=== PATIENT | female | born 1960 | race Caucasian/White ===

== ENCOUNTER 2017-06-16 12:32 | Emergency (ER) | payer OTHER ==
--- NOTE | 2017-06-16 13:47 | Emergency Department Report ---
Chief Complaint: Chest Pain Stated Complaint: CHEST PAIN Time Seen by Provider: 06/16/17 13:43 - HPI History of Present Illness: Patient with H/O HTN and DM presents to ED with c/o intermittent left sided CP that radiates into left shoulder and SOB x 4 days; also admits to nausea and generalized PANTOJA; denies vomiting, abdominal pain, cough, fevers, recent injuries , and H/O FL and CVA; admits she hasn't taken her DM meds in 3 months and BP meds in 1 week - ROS Review of Systems: Negative except for those stated in HPI - Exam Vital Signs: Vital Signs 06/16/17 12:54 Temperature 98.2 F Pulse Rate 82 Respiratory 16 Rate Blood Pressure 141/90 O2 Sat by Pulse 97 Oximetry Physical Exam: NAD RRR CTAB, mild TTP over left anterior chest wall Abdomen - soft, nondistended, nontender MSE screening note: Focused history and physical exam performed. Due to findings the following was ordered: cardiac workup Patient to be seen by provider in Main ED ED Disposition for MSE Condition: Stable
[2017-06-16 14:09] LABS: Basophils % (Auto) 0.7 % (0.0-1.8); Eosinophils % (Auto) 3.1 % (0.0-4.3); Hematocrit 39.9 % (30.3-42.9); Hemoglobin 13.5 gm/dl (10.1-14.3); Mean Corpuscular HGB Conc 34 % (30-34); Mean Corpuscular Hemoglobin 30 pg (28-32); Mean Corpuscular Volume 90 fl (79-97); Platelet Count 260 K/mm3 (140-440); Red Blood Count 4.46 M/mm3 (3.65-5.03); Red Cell Distribution Width 13.6 % (13.2-15.2); White Blood Count 9.3 K/mm3 (4.5-11.0)
--- NOTE | 2017-06-16 14:19 | XRay Report ---
ROUTINE CHEST, TWO VIEWS: HISTORY: chest pain. The trachea, heart, mediastinal contour, lung richardson and bony thorax are unremarkable. IMPRESSION: Unremarkable chest x-ray.
[2017-06-16 14:37] LABS: Alanine Aminotransferase 32 units/L (7-56); Albumin 4.6 g/dL (3.9-5); Albumin/Globulin Ratio 1.5 %; Alkaline Phosphatase 65 units/L (35-129); Anion Gap 20 mmol/L; BUN/Creatinine Ratio 53; Blood Urea Nitrogen 21 mg/dL (7-17); Calcium 9.8 mg/dL (8.4-10.2); Carbon Dioxide 25 mmol/L (22-30); Glucose 142 mg/dL (65-100); Lipase 44 units/L (13-60); Potassium 4.3 mmol/L (3.6-5.0); Sodium 138 mmol/L (137-145); Total Protein 7.7 g/dL (6.3-8.2)
[2017-06-17] MEDS ORDERED: TORADOL IM ONE (02:02)
--- NOTE | 2017-06-17 02:06 | Emergency Department Report ---
ED Chest Pain HPI - General Chief Complaint: Chest Pain Stated Complaint: CHEST PAIN Time Seen by Provider: 06/16/17 13:43 Source: patient Mode of arrival: Ambulatory Limitations: No Limitations - History of Present Illness Initial Comments: Patient is 56 years old female history of diabetes and high blood pressure she presented today with left sided chest pain for the last 3 weeks, she describes her pain as sharp and radiated to her back and left shoulder. Patient stated that she has been pushing stuff at her job, she has use her hands constantly. He denied shortness of breath cough or fever. MD Complaint: chest pain -: week(s) Onset: during rest Pain Location: left chest Severity scale (0 -10): 5 Quality: sharp Consistency: intermittent Improves With: remaining still Worsens With: movement - Related Data Home Medications Medication Instructions Recorded Confirmed Last Taken Levothyroxine [Synthroid] 50 mcg PO QAM 06/17/17 06/17/17 Unknown Lisinopril 20 mg PO DAILY 06/17/17 06/17/17 Unknown metFORMIN [Glucophage] 500 mg PO BID 06/17/17 06/17/17 Unknown Previous Rx's Medication Instructions Recorded Last Taken Type Metaxalone [Skelaxin] 800 mg PO TID #30 tablet 06/17/17 Unknown Rx Naproxen [Naprosyn] 500 mg PO BID #14 tablet 06/17/17 Unknown Rx Allergies Allergy/AdvReac Type Severity Reaction Status Date / Time Penicillins AdvReac Shortness Verified 06/16/17 13:00 of Breath Heart Score - HEART Score History: Moderately suspicious EKG: Normal Age: 45-65 Risk factors: 1-2 risk factors Troponin: < normal limit HEART Score: 3 - Critical Actions Critical Actions: 0-3 pts:0.9-1.7%risk of adverse cardiac event.Candidate for discharge ED Review of Systems ROS: Stated complaint: CHEST PAIN Other details as noted in HPI Comment: All other systems reviewed and negative Constitutional: denies: chills, fever Respiratory: denies: cough, orthopnea, shortness of breath, SOB with exertion, SOB at rest Cardiovascular: chest pain. denies: palpitations, dyspnea on exertion Gastrointestinal: denies: abdominal pain, nausea, vomiting, diarrhea, constipation, hematemesis Genitourinary: denies: urgency, dysuria Skin: denies: rash Neurological: denies: headache, weakness, numbness, paresthesias, abnormal gait ED Past Medical Hx - Past Medical History Previous Medical History?: Yes Hx Hypertension: Yes Hx Diabetes: Yes Additional medical history: thyroid, cholesterol - Surgical History Past Surgical History?: No - Social History Smoking Status: Never Smoker Substance Use Type: None - Medications Home Medications: Home Medications Medication Instructions Recorded Confirmed Last Taken Type Levothyroxine [Synthroid] 50 mcg PO QAM 06/17/17 06/17/17 Unknown History Lisinopril 20 mg PO DAILY 06/17/17 06/17/17 Unknown History Metaxalone [Skelaxin] 800 mg PO TID #30 tablet 06/17/17 Unknown Rx Naproxen [Naprosyn] 500 mg PO BID #14 tablet 06/17/17 Unknown Rx metFORMIN [Glucophage] 500 mg PO BID 06/17/17 06/17/17 Unknown History ED Physical Exam - General Limitations: No Limitations General appearance: alert, in no apparent distress - Head Head exam: Present: atraumatic, normocephalic, normal inspection - Eye Eye exam: Present: normal appearance, PERRL - ENT ENT exam: Present: normal exam, normal orophraynx, mucous membranes moist - Neck Neck exam: Present: normal inspection, full ROM. Absent: meningismus, lymphadenopathy, thyromegaly - Respiratory Respiratory exam: Present: normal lung sounds bilaterally, chest wall tenderness. Absent: respiratory distress, wheezes, rales, rhonchi, stridor, accessory muscle use, decreased breath sounds, prolonged expiratory - Cardiovascular Cardiovascular Exam: Present: regular rate, normal rhythm, normal heart sounds - GI/Abdominal GI/Abdominal exam: Present: soft, normal bowel sounds. Absent: distended, tenderness, guarding, rebound, rigid, organomegaly, mass, bruit, pulsatile mass , hernia - Extremities Exam Extremities exam: Present: normal inspection, full ROM, normal capillary refill. Absent: pedal edema, calf tenderness - Back Exam Back exam: Present: normal inspection. Absent: CVA tenderness (R), CVA tenderness (L), muscle spasm, paraspinal tenderness, vertebral tenderness - Neurological Exam Neurological exam: Present: alert, oriented X3, CN II-XII intact, normal gait, reflexes normal. Absent: motor sensory deficit - Skin Skin exam: Present: warm, intact, normal color. Absent: cyanosis ED Course Vital Signs 06/16/17 06/16/17 06/16/17 12:54 22:15 23:23 Temperature 98.2 F 97.9 F 98.2 F Pulse Rate 82 85 70 Respiratory 16 18 20 Rate Blood Pressure 141/90 143/93 Blood Pressure 136/76 [Right] O2 Sat by Pulse 97 98 98 Oximetry 06/17/17 06/17/17 06/17/17 01:00 02:25 02:26 Temperature Pulse Rate 75 Respiratory 20 20 20 Rate Blood Pressure Blood Pressure 133/80 [Right] O2 Sat by Pulse 98 98 Oximetry 06/17/17 02:40 Temperature Pulse Rate Respiratory 20 Rate Blood Pressure Blood Pressure [Right] O2 Sat by Pulse Oximetry ED Medical Decision Making - Lab Data Result diagrams: 06/16/17 13:55 06/16/17 13:55 - EKG Data -: EKG Interpreted by Me EKG shows normal: sinus rhythm Rate: normal - EKG Data Interpretation: no acute changes - Medical Decision Making Patient's pain resolved. This is an atypical chest pain most likely costochondritis, patient is tender to palpation to the left chest. EKG is unremarkable and 2 sets of troponin is negative. I don't believe this is cardiac in origin and I advised the patient to follow-up with her primary care physician for further testing including a stress test. Critical care attestation.: If time is entered above; I have spent that time in minutes in the direct care of this critically ill patient, excluding procedure time. ED Disposition Clinical Impression: Chest pain, Costochondritis, acute Disposition: DC-01 TO HOME OR SELFCARE Is pt being admited?: No Condition: Stable Instructions: Chest Pain (ED), Costochondritis (ED) Prescriptions: Metaxalone [Skelaxin] 800 mg PO TID #30 tablet Naproxen [Naprosyn] 500 mg PO BID #14 tablet Referrals: PRIMARY CARE, [Primary Care Provider] - 3-5 Days
[2017-06-17 02:27] VITALS: BP 133/80
== END 2017-06-17 02:40 | disposition home or self-care (01) ==
LOC: ED 12:32
DX: M94.0 Chondrocostal junction syndrome [Tietze] (principal); I10 Essential (primary) hypertension; E11.9 Type 2 diabetes mellitus without complications; Z88.0 Allergy status to penicillin
CPT/HCPCS: 36415; 71020; 80053; 83690; 84484; 85025; 93005; 93010; 96372; 99284; J1885